=== PATIENT | female | born 1940 | race Caucasian/White ===

== ENCOUNTER 2022-06-22 16:33 | Inpatient (IN) | payer OTHER ==
[~2022-06-22] VITALS: Ht 167.6 cm; Wt 59.9 kg
[2022-06-22 16:33] VITALS: BP_SYST 185
[2022-06-22 17:22] LABS: BASOPHILS % (AUTO) 0.8 % (0.0-2.0); EOSINOPHILS # (AUTO) 0.1 K/uL (0.0-0.4); EOSINOPHILS % (AUTO) 2.2 % (0.0-4.0); HEMATOCRIT 41.8 % (36-48); HEMOGLOBIN 14.3 g/dL (12.0-16.0); LYMPHOCYTES # (AUTO) 1.3 K/uL (1.0-5.5); LYMPHOCYTES % (AUTO) 30.2 % (20.5-51.5); MEAN CORPUSCULAR HEMOGLOBIN 32 pg (27-31); MEAN CORPUSCULAR HGB CONC 34 % (32-36); MEAN CORPUSCULAR VOLUME 94 fL (79.0-98.0); MONOCYTES # (AUTO) 0.4 K/uL (0.0-1.0); MONOCYTES % (AUTO) 10.2 % (1.7-9.3); NEUTROPHILS # (AUTO) 2.5 K/uL (1.8-7.7); NEUTROPHILS % (AUTO) 56.6 % (40.0-70.0); PLATELET COUNT (AUTO) 159 K/uL (130-430); RED BLOOD CELL COUNT(AUTO) 4.46 MIL/uL (4.2-6.2); RED CELL DISTRIBUTION WIDTH 13.5 % (9.0-15.0); WHITE BLOOD COUNT (AUTO) 4.4 K/uL (4.8-10.8)
[2022-06-22 17:26] LABS: ANION GAP 6 (5-15); CALCIUM 8.7 mg/dL (8.4-11.0); CHLORIDE 102 mmol/L (98-107); CREATININE 0.73 mg/dL (0.55-1.30); GLUCOSE 106 mg/dL (70-99); UREA NITROGEN, BLOOD 18 mg/dL (8-21)
[2022-06-22 17:30] LABS: PROTHROMBIN TIME 10.2 SECS (9.5-12.5)
[2022-06-22 17:32] LABS: BILIRUBIN,URINE NEGATIVE (NEGATIVE); BLOOD, URINE 1+ (NEGATIVE); GLUCOSE,URINE NEGATIVE (NEGATIVE); KETONES,URINE NEGATIVE (NEGATIVE); LEUKOCYTE ESTERASE ,URINE NEGATIVE (NEGATIVE); NITRITE, URINE NEGATIVE (NEGATIVE); PROTEIN URINE NEGATIVE (NEGATIVE); UROBILINOGEN,URINE 0.2 (0.2-1.0)
[2022-06-22 17:33] LABS: CLARITY/URINE SLIGHTLY CLOUDY (CLEAR); COLOR,URINE STRAW (YELLOW)
[2022-06-22 17:33] LABS: ALANINE AMINOTRANSFERASE 23 U/L (12-78); ASPARTATE AMINOTRANSFERASE 18 U/L (10-37); TOTAL BILIRUBIN 0.3 mg/dL (0.0-1.0)
[2022-06-22 17:58] LABS: BARBITURATE, URINE NEGATIVE (NEG <=200); BENZODIAZEPINE, URINE NEGATIVE (NEG <=150); CANNABINOID, URINE NEGATIVE (NEG <=50); COCAINE, URINE NEGATIVE (NEG <=150); METHAMPHETAMINES SCREEN,URINE NEGATIVE (NEG <=500); OPIATE, URINE NEGATIVE (NEG <=100); PHENCYCLIDINE SCREEN,URINE NEGATIVE (NEG <=25); UR TRICYCLIC ANTIDEPRESSANTS NEGATIVE (NEG <=300); URINE AMPHETAMINE NEGATIVE (NEG <=500); URINE METHADONE NEGATIVE (NEG <=200); URINE OXYCODONE SCREEN NEGATIVE (NEG <=100); URINE PROPOXYPHENE SCREEN NEGATIVE (NEG <=300)
[2022-06-22 18:05] LABS: BACTERIA,URINE RARE /HPF (None Seen); WBC,URINE NONE SEEN /HPF (0-3)
[2022-06-22] MEDS ORDERED: FLEC50TA2 PO (19:36)
[2022-06-22] MEDS ORDERED: RIVA20TA PO (19:36)
[2022-06-22 21:00] VITALS: BP_SYST 160
[2022-06-22] MEDS ORDERED: cloNIDine HCL 0.1 MG TABLET PO PRN (22:30)
[2022-06-22] MEDS ORDERED: ACETAMINOPHEN 325 MG TABLET PO PRN (22:30)
[2022-06-23] VITALS: BP_SYST 162
[2022-06-23 08:00] VITALS: BP_SYST 155
[2022-06-23] MEDS: FLECAINIDE ACETATE 50 MG TABLET (TAMBOCOR) PO SCH ×2 (08:53→20:23)
[2022-06-23] MEDS ORDERED: RIVAROXABAN 10 MG TABLET PO SCH (09:00)
[2022-06-23] MEDS ORDERED: GADOTERATE MEGLUMINE 7.5 MMOL/15 ML VIAL IV ONE (10:18)
[2022-06-23 11:44] VITALS: BP_SYST 134
[2022-06-23 15:51] VITALS: BP_SYST 133
[2022-06-23 20:00] VITALS: BP_SYST 144
[2022-06-24 01:57] VITALS: BP_SYST 129
[2022-06-24 08:00] VITALS: BP_SYST 117
[2022-06-24] MEDS ORDERED: RIVAROXABAN 10 MG TABLET PO ONE (09:45)
[2022-06-24] MEDS: FLECAINIDE ACETATE 50 MG TABLET (TAMBOCOR) PO SCH (09:49)
[2022-06-24 12:00] VITALS: BP_SYST 121
[2022-06-24 15:32] VITALS: BP_SYST 128
[2022-06-24 16:01] VITALS: BP_SYST 118
[2022-06-25] MEDS ORDERED: RIVAROXABAN 10 MG TABLET PO SCH (09:00)
== END 2022-06-24 16:19 | disposition home or self-care (01) | DRG 69 ==
LOC: SED 16:33 → STU 19:27
PROVIDERS: ADMIT Family Medicine; ATTEND Family Medicine
DX: G45.9 Transient cerebral ischemic attack, unspecified (principal); D68.59 Other primary thrombophilia; I10 Essential (primary) hypertension; Z20.822 Contact with and (suspected) exposure to COVID-19; I48.0 Paroxysmal atrial fibrillation; Z88.2 Allergy status to sulfonamides; Z88.1 Allergy status to other antibiotic agents
CPT/HCPCS: 36415; 70450-TC; 70496; 70498; 70553; 71045; 76376; 80053; 80307; 81000; 84484; 85025; 85610-TC; 85730-TC; 86886; 86900; 86901; 93005; 93306; 97116-GP; 97163-GP; 99291; A9575; G0378; Q9967

== ENCOUNTER 2023-02-26 21:27 | Emergency (ER) | payer OTHER ==
[~2023-02-26] VITALS: Ht 167.6 cm; Wt 58.1 kg
[~2023-02-26 21:27] MED LIST: FLEC50TA2 PO; RIVA20TA PO
[2023-02-26 21:55] VITALS: BP_SYST 149; PULSE 80; RESP 18; TEMP 97; O2SAT 98
== END 2023-02-26 22:40 | disposition left against medical advice (07) ==
LOC: SED 21:27
DX: T18.9XXA Foreign body of alimentary tract, part unspecified, initial encounter (principal); Z53.21 Procedure and treatment not carried out due to patient leaving prior to being seen by health care provider; W44.8XXA Other foreign body entering into or through a natural orifice, initial encounter; Y93.89 Activity, other specified; Y92.89 Other specified places as the place of occurrence of the external cause; Y99.8 Other external cause status
CPT/HCPCS: 99281